=== PATIENT | male | born 1965 | race African-American/Black ===

== ENCOUNTER 2021-10-31 15:46 | Emergency (ER) | payer OTHER, MEDICAID ==
[~2021-10-31] VITALS: Ht 180.3 cm; Wt 77.0 kg
[2021-10-31 18:00] LABS: CHLORIDE 100 mEq/L (98-107); HEMATOCRIT. 46.4 % (42.0-52.0); HEMOGLOBIN. 14.9 g/dL (14.0-18.0); MEAN CORPUSCULAR HEMOGLOBIN 31.1 pg (28.0-32.0); MEAN CORPUSCULAR VOLUME 96.7 fL (80.0-94.0); MEAN PLATELET VOLUME 8.2 fl (7.4-10.4); PLATELET 245 x1000/uL (130-400)
[2021-10-31 18:03] LABS: ETHANOL BLOOD < 10 mg/dL
[2021-10-31 19:04] LABS: PLATELET ESTIMATE NORMAL
[2021-10-31] MEDS ORDERED: IPRATROPIUM BROMIDE (0.02%) 0.5MG/2.5ML NEB HHN STA (19:32)
[2021-10-31] MEDS ORDERED: ASPIRIN 325MG EC TABLET PO ONE (19:45)
[2021-10-31] MEDS ORDERED: SODIUM CHLORIDE 0.9% 500 ML IV ONE (19:45)
[2021-10-31] MEDS: ALBUTEROL (0.083%) 2.5MG/3ML NEB HHN SCH ×3 (20:20→21:55)
[2021-10-31 20:22] LABS: CLARITY URINE CLEAR (CLEAR); COLOR URINE YELLOW (YELLOW); KETONES URINE NEGATIVE (NEGATIVE); LEUKOCYTE ESTERASE URINE NEGATIVE (NEGATIVE); NITRITE URINE NEGATIVE (NEGATIVE); OCCULT BLOOD URINE NEGATIVE (NEGATIVE); PH URINE 5.5 (4.5-8.0); PROTEIN URINE 2+ (NEGATIVE); SPECIFIC GRAVITY URINE 1.021 (1.005-1.030); UROBILINOGEN URINE 0.2 E.U./dL (0.2-1.0)
[2021-10-31 20:35] LABS: *AMPHETAMINES SCREEN URINE PRESUMTIVE POSITIVE (NEGATIVE); *BARBITURATES SCREEN URINE NEGATIVE (NEGATIVE); *BENZODIAZEPINES SCREEN URINE NEGATIVE (NEGATIVE); *COCAINE SCREEN URINE NEGATIVE (NEGATIVE); METHADONE URINE SCREEN NEGATIVE (NEGATIVE); OPIATES URINE SCREEN PRESUMTIVE POSITIVE (NEGATIVE)
[2021-10-31 20:38] LABS: CANNABINOID URINE SCREEN PRESUMTIVE POSITIVE (NEGATIVE); PHENCYCLIDINE URINE SCREEN NEGATIVE (NEGATIVE)
[2021-10-31] MEDS ORDERED: ASPIRIN 325MG EC TABLET PO NR (21:00)
[2021-10-31] MEDS ORDERED: IPRATROPIUM BROMIDE (0.02%) 0.5MG/2.5ML NEB HHN NR (21:00)
[2021-10-31 23:00] VITALS: BP 125/95
== END 2021-10-31 23:28 | disposition short-term general hospital (02) ==
LOC: ER 15:46
DX: I21.4 Non-ST elevation (NSTEMI) myocardial infarction (principal); E86.0 Dehydration; I11.0 Hypertensive heart disease with heart failure; I50.9 Heart failure, unspecified; J44.9 Chronic obstructive pulmonary disease, unspecified; F31.9 Bipolar disorder, unspecified; E11.9 Type 2 diabetes mellitus without complications; I25.2 Old myocardial infarction; F17.210 Nicotine dependence, cigarettes, uncomplicated; Z95.0 Presence of cardiac pacemaker; Z20.822 Contact with and (suspected) exposure to COVID-19; Z88.8 Allergy status to other drugs, medicaments and biological substances
CPT/HCPCS: 36415; 71045; 80053; 80305; 80320; 81003; 83690; 83880; 84484; 85025; 87426; 93005; 94640; 96360; 99285; J7040; G0480

== ENCOUNTER 2021-11-06 13:49 | Emergency (ER) | payer OTHER, MEDICAID ==
[~2021-11-06] VITALS: Ht 177.8 cm; Wt 80.0 kg
[2021-11-06 17:00] LABS: BASOPHILS % 0.5 % (0.0-2.0); HEMATOCRIT. 46.3 % (42.0-52.0); HEMOGLOBIN. 15.1 g/dL (14.0-18.0); LYMPHOCYTES % 11.9 % (20.0-50.0); MEAN CORPUSCULAR HEMOGLOBIN 32.2 pg (28.0-32.0); MEAN CORPUSCULAR VOLUME 98.6 fL (80.0-94.0); MEAN PLATELET VOLUME 7.9 fl (7.4-10.4); MONOCYTES % 8.4 % (2.0-8.0); NEUTROPHILS % 78.2 % (40.0-76.0); PLATELET 237 x1000/uL (130-400); RED CELL DISTRIBUTION WIDTH 16.6 % (11.6-14.6)
[2021-11-06 17:11] LABS: CHLORIDE 114 mEq/L (98-107)
[2021-11-06] MEDS ORDERED: FUROSEMIDE 40MG/4ML VIAL IVP ONE (17:30)
[2021-11-06 19:00] LABS: *AMPHETAMINES SCREEN URINE PRESUMTIVE POSITIVE (NEGATIVE); *BARBITURATES SCREEN URINE NEGATIVE (NEGATIVE); *BENZODIAZEPINES SCREEN URINE NEGATIVE (NEGATIVE); *COCAINE SCREEN URINE NEGATIVE (NEGATIVE); CANNABINOID URINE SCREEN PRESUMTIVE POSITIVE (NEGATIVE); METHADONE URINE SCREEN NEGATIVE (NEGATIVE); OPIATES URINE SCREEN NEGATIVE (NEGATIVE); PHENCYCLIDINE URINE SCREEN NEGATIVE (NEGATIVE)
[2021-11-06] MEDS ORDERED: ALBUTEROL (0.083%) 2.5MG/3ML NEB HHN STA (19:30)
[2021-11-06] MEDS ORDERED: IPRATROPIUM BROMIDE (0.02%) 0.5MG/2.5ML NEB HHN STA (19:30)
[2021-11-06] MEDS ORDERED: LORAZEPAM 2MG/ML CPJ IV ONE (20:00)
[2021-11-06] MEDS ORDERED: LORAZEPAM 2MG/ML CPJ IV NR (21:10)
[2021-11-07 01:46] VITALS: BP 128/98
== END 2021-11-07 02:13 | disposition short-term general hospital (02) ==
LOC: ER 13:49
DX: I11.0 Hypertensive heart disease with heart failure (principal); I50.43 Acute on chronic combined systolic (congestive) and diastolic (congestive) heart failure; F15.129 Other stimulant abuse with intoxication, unspecified; F31.9 Bipolar disorder, unspecified; E11.9 Type 2 diabetes mellitus without complications; J44.9 Chronic obstructive pulmonary disease, unspecified; I25.2 Old myocardial infarction; Z20.822 Contact with and (suspected) exposure to COVID-19; Z95.0 Presence of cardiac pacemaker; Z86.73 Personal history of transient ischemic attack (TIA), and cerebral infarction without residual deficits; Z88.8 Allergy status to other drugs, medicaments and biological substances
CPT/HCPCS: 36415; 71045; 80053; 80305; 80320; 83880; 84484; 85025; 87426; 93005; 94640; 96374; 96375; 99285; J1940; J2060; G0480

== ENCOUNTER 2023-04-25 13:49 | Emergency (ER) | payer OTHER, MEDICAID ==
[~2023-04-25] VITALS: Ht 167.6 cm; Wt 68.0 kg
[~2023-04-25 13:49] MED LIST: ALBU18HF2 IH; CARV12.545 MT; FLUT1DIS3 INH; FURO-151 MT; LOSA50TA41 MT; POTA-205 MT
[2023-04-25 13:56] VITALS: O2SAT 100
[2023-04-25 14:23] LABS: BASOPHILS % 0.8 % (0.0-2.0); EOSINOPHILS % 4.4 % (0.0-5.0); HEMATOCRIT. 40.4 % (42.0-52.0); HEMOGLOBIN. 13.2 g/dL (14.0-18.0); MEAN CORPUSCULAR HEMOGLOBIN 28.2 pg (28.0-32.0); MEAN CORPUSCULAR HGB CONC 32.7 g/dL (31.0-37.0); MEAN CORPUSCULAR VOLUME 86.4 fL (80.0-94.0); MEAN PLATELET VOLUME 7.8 fl (7.4-10.4); MONOCYTES % 9.1 % (2.0-8.0); NEUTROPHILS % 66.7 % (40.0-76.0); PLATELET 317 x1000/uL (130-400); RED BLOOD CELL COUNT 4.68 mill/uL (4.7-6.1); RED CELL DISTRIBUTION WIDTH 20.1 % (11.6-14.6); WHITE BLOOD COUNT 9.3 x1000/uL (4.5-11.0)
[2023-04-25 14:28] LABS: CHLORIDE 103 mEq/L (98-107); INDEX HEMOLYSI 1 (1-3); INDEX ICTERIC 1 (1-4); INDEX LIPEMIC 2 (1-3); POTASSIUM 4.4 mEq/L (3.5-5.1); SODIUM 135 mEq/L (136-145)
[2023-04-25 14:34] LABS: INR 1.7; PARTIAL THROMBOPLASTIN TIME 43.9 sec (23.4-31.0); PROTHROMBIN TIME 17.5 sec (9.6-11.0)
[2023-04-25 14:39] LABS: ALANINE AMINOTRANSFERASE 262 IU/L (13-61); ALBUMIN 2.9 g/dL (3.4-5.0); ASPARTATE AMINOTRANSFERASE 45 IU/L (15-37); BILIRUBIN TOTAL 0.8 mg/dL (0.1-1.0); CALCIUM 9.3 mg/dL (8.5-10.1); CARBON DIOXIDE 24 mEq/L (21-32); CREATININE 1.6 mg/dL (0.6-1.3); GLUCOSE 113 mg/dL (70-105); NT PRO B-TYPE NATRIURETIC PEP 3833 pg/mL (5-125); PROTEIN TOTAL 8.3 g/dL (6.0-8.3); TROPONIN I HIGH SENSITIVITY 33 ng/L (<78); UREA NITROGEN BLOOD 22 mg/dL (7-21)
[2023-04-25 21:02] VITALS: BP 103/60; PULSE 88; RESP 21; TEMP 98.4
== END 2023-04-25 21:30 | disposition short-term general hospital (02) ==
LOC: ER 13:49
DX: I50.9 Heart failure, unspecified (principal); R55 Syncope and collapse; F31.9 Bipolar disorder, unspecified; I11.0 Hypertensive heart disease with heart failure; J44.9 Chronic obstructive pulmonary disease, unspecified; I25.2 Old myocardial infarction; Z86.73 Personal history of transient ischemic attack (TIA), and cerebral infarction without residual deficits
CPT/HCPCS: 99285; 70450; 71045; 87426; 80053; 83880; 85025; 85610; 85730; 84484; 36415; C9803

== ENCOUNTER 2023-05-05 13:54 | Inpatient (IN) | payer OTHER, MEDICAID ==
[~2023-05-05] VITALS: Ht 165.1 cm; Wt 79.8 kg
[2023-05-05 16:44] LABS: EOSINOPHILS % 3.4 % (0.0-5.0); HEMATOCRIT. 41.4 % (42.0-52.0); HEMOGLOBIN. 12.9 g/dL (14.0-18.0); LYMPHOCYTES % 24.4 % (20.0-50.0); MEAN CORPUSCULAR HEMOGLOBIN 27.7 pg (28.0-32.0); MEAN CORPUSCULAR HGB CONC 31.2 g/dL (31.0-37.0); MEAN CORPUSCULAR VOLUME 88.8 fL (80.0-94.0); MEAN PLATELET VOLUME 8.1 fl (7.4-10.4); MONOCYTES % 13.8 % (2.0-8.0); NEUTROPHILS % 57.4 % (40.0-76.0); PLATELET 312 x1000/uL (130-400); RED BLOOD CELL COUNT 4.66 mill/uL (4.7-6.1); RED CELL DISTRIBUTION WIDTH 20.7 % (11.6-14.6); WHITE BLOOD COUNT 7.6 x1000/uL (4.5-11.0)
[2023-05-05 16:59] LABS: INDEX HEMOLYSI 1 (1-3); INDEX ICTERIC 1 (1-4); INDEX LIPEMIC 1 (1-3)
[2023-05-05 17:01] LABS: CALCIUM 9.3 mg/dL (8.5-10.1)
[2023-05-05 17:04] LABS: ALBUMIN 2.9 g/dL (3.4-5.0); CARBON DIOXIDE 23 mEq/L (21-32); CHLORIDE 105 mEq/L (98-107); GLUCOSE 66 mg/dL (70-105); SODIUM 140 mEq/L (136-145); UREA NITROGEN BLOOD 28 mg/dL (7-21)
[2023-05-05 17:10] LABS: ALANINE AMINOTRANSFERASE 43 IU/L (13-61); ASPARTATE AMINOTRANSFERASE 26 IU/L (15-37); BILIRUBIN TOTAL 0.7 mg/dL (0.1-1.0); CREATININE 1.4 mg/dL (0.6-1.3); NT PRO B-TYPE NATRIURETIC PEP 3443 pg/mL (5-125); PROTEIN TOTAL 7.6 g/dL (6.0-8.3)
[2023-05-06] MEDS ORDERED: ACETAMINOPHEN 325MG TABLET PO PRN ×2 (00:30→22:45)
[2023-05-06] MEDS ORDERED: ONDANSETRON HCL 4MG/2ML INJ IV PRN ×2 (00:30→22:45)
[2023-05-06 05:00] VITALS: BP 109/70; PULSE 86; RESP 18; TEMP 97.5
[2023-05-06 05:55] VITALS: BP 109/7; PULSE 86; RESP 18; TEMP 97.5
[2023-05-06 08:00] VITALS: BP 111/73; PULSE 85; RESP 17; TEMP 96.9
[2023-05-06] MEDS: ENOXAPARIN 40MG/0.4ML SYR SUBCUT SCH (09:08)
[2023-05-06 12:00] VITALS: BP 115/70; PULSE 87; RESP 17; TEMP 97.1
[2023-05-06 13:21] LABS: INDEX HEMOLYSI 1 (1-3)
[2023-05-06 13:30] LABS: CREATINE KINASE 50 IU/L (39-308); CREATINE KINASE MB FRACTION 2.5 ng/mL (0.5-3.6); TROPONIN I HIGH SENSITIVITY 32 ng/L (<78)
[2023-05-06] MEDS: HYDROCODONE/ACETAMINOPHEN 5/325MG TABLET PO PRN ×2 (13:44→20:50)
[2023-05-06] MEDS ORDERED: NALOXONE HCL 0.4MG/ML VIAL IV PRN (13:45)
[2023-05-06 15:57] LABS: CREATINE KINASE MB FRACTION 2.7 ng/mL (0.5-3.6)
[2023-05-06 16:00] VITALS: BP 103/81; PULSE 87; RESP 17; TEMP 98
[2023-05-06] MEDS ORDERED: DEXTROSE 50% WATER 50ML SYRINGE IV PRN (19:15)
[2023-05-06 19:56] VITALS: BP 110/79; PULSE 94; RESP 17; TEMP 98.1
[2023-05-06] MEDS: CARVEDILOL 12.5MG TABLET PO SCH (20:20)
[2023-05-06] MEDS: BLOOD SUGAR DIAGNOSTIC STRIP TEST SCH (20:42)
[2023-05-06] MEDS ORDERED: IPRATROPIUM/ALBUTEROL 0.5-3(2.5)MG/3ML NEB HHN PRN (22:45)
[2023-05-07 00:38] VITALS: BP 128/80; PULSE 110; RESP 18; TEMP 97.8
[2023-05-07] MEDS: BLOOD SUGAR DIAGNOSTIC STRIP TEST SCH ×4 (06:22→21:00)
[2023-05-07 08:00] VITALS: BP 118/78; PULSE 90; RESP 18; TEMP 97.3
[2023-05-07] MEDS: ENOXAPARIN 40MG/0.4ML SYR SUBCUT SCH (08:16)
[2023-05-07] MEDS: CARVEDILOL 12.5MG TABLET PO SCH ×2 (08:28→20:20)
[2023-05-07] MEDS: LOSARTAN 25 MG TABLET PO SCH (08:30)
[2023-05-07] MEDS: HYDROCODONE/ACETAMINOPHEN 5/325MG TABLET PO PRN ×2 (08:30→16:55)
[2023-05-07 09:08] LABS: CHLORIDE 105 mEq/L (98-107); INDEX HEMOLYSI 2 (1-3); INDEX ICTERIC 1 (1-4); INDEX LIPEMIC 1 (1-3); POTASSIUM 4.3 mEq/L (3.5-5.1); SODIUM 135 mEq/L (136-145)
[2023-05-07 09:19] LABS: CALCIUM 9.1 mg/dL (8.5-10.1); CARBON DIOXIDE 21 mEq/L (21-32); CREATINE KINASE 60 IU/L (39-308); CREATINE KINASE MB FRACTION 2.6 ng/mL (0.5-3.6); CREATININE 1.1 mg/dL (0.6-1.3); GLUCOSE 137 mg/dL (70-105); TROPONIN I HIGH SENSITIVITY 36 ng/L (<78); UREA NITROGEN BLOOD 24 mg/dL (7-21)
[2023-05-07] MEDS ORDERED: METOPROLOL TARTRATE 50MG TABLET PO NR (09:30)
[2023-05-07 12:00] VITALS: BP 89/61; PULSE 85; RESP 20; TEMP 97.1
[2023-05-07 16:00] VITALS: BP 89/61; PULSE 68; RESP 18; TEMP 97
[2023-05-07 16:15] LABS: CREATINE KINASE MB FRACTION 2.9 ng/mL (0.5-3.6)
[2023-05-07 20:00] VITALS: BP 108/65; PULSE 75; RESP 20; TEMP 97.6
[2023-05-07] MEDS ORDERED: LORAZEPAM 2MG/ML CPJ IV PRN (20:00)
[2023-05-07] MEDS: QUETIAPINE FUMARATE 25MG TABLET PO SCH (20:20)
[2023-05-07 21:08] LABS: *AMPHETAMINES SCREEN URINE PRESUMTIVE POSITIVE (NEGATIVE); *BARBITURATES SCREEN URINE NEGATIVE (NEGATIVE); *BENZODIAZEPINES SCREEN URINE NEGATIVE (NEGATIVE); *COCAINE SCREEN URINE NEGATIVE (NEGATIVE); CANNABINOID URINE SCREEN NEGATIVE (NEGATIVE); ECSTASY MDMA SCREEN URINE NEGATIVE (NEGATIVE); OPIATES URINE SCREEN PRESUMTIVE POSITIVE (NEGATIVE); PHENCYCLIDINE URINE SCREEN NEGATIVE (NEGATIVE)
[2023-05-07 21:26] LABS: METHADONE URINE SCREEN INVALID (NEGATIVE)
[2023-05-08] VITALS (7 sets, daily range): BP systolic 90–104; BP diastolic 55–73; PULSE 70–86; RESP 18–22; TEMP 97–98.7; O2SAT 100
[2023-05-08] MEDS: BLOOD SUGAR DIAGNOSTIC STRIP TEST SCH ×4 (06:19→20:14)
[2023-05-08] MEDS: QUETIAPINE FUMARATE 25MG TABLET PO SCH ×2 (09:44→21:29)
[2023-05-08] MEDS: CARVEDILOL 12.5MG TABLET PO SCH ×2 (09:44→20:13)
[2023-05-08] MEDS: ENOXAPARIN 40MG/0.4ML SYR SUBCUT SCH (09:44)
[2023-05-08] MEDS: LOSARTAN 25 MG TABLET PO SCH (09:44)
[2023-05-08] MEDS: HYDROCODONE/ACETAMINOPHEN 5/325MG TABLET PO PRN (16:07)
[2023-05-09] VITALS: BP 102/71; PULSE 94; RESP 18; TEMP 97.4
== END 2023-05-09 02:15 | disposition short-term general hospital (02) | DRG 312 ==
LOC: ER 13:54 → EDBEDREQSVC 19:19 → EDBEDREQ 19:19 → MICUSO 05-06 00:12 → 5WST 05-06 07:48
PROVIDERS: ADMIT Internal Medicine; ATTEND Internal Medicine
DX: I95.1 Orthostatic hypotension (principal); G93.41 Metabolic encephalopathy; I50.23 Acute on chronic systolic (congestive) heart failure; N17.9 Acute kidney failure, unspecified; I11.0 Hypertensive heart disease with heart failure; D64.9 Anemia, unspecified; E11.51 Type 2 diabetes mellitus with diabetic peripheral angiopathy without gangrene; G62.9 Polyneuropathy, unspecified; G83.9 Paralytic syndrome, unspecified; J44.9 Chronic obstructive pulmonary disease, unspecified; F15.90 Other stimulant use, unspecified, uncomplicated; F17.210 Nicotine dependence, cigarettes, uncomplicated; Z96.652 Presence of left artificial knee joint; Z79.899 Other long term (current) drug therapy; Z95.810 Presence of automatic (implantable) cardiac defibrillator
CPT/HCPCS: 36415; 71045; 73030; 80048; 80053; 80305; 82550; 82553; 82962; 83036; 83880; 84484; 85025; 93005; 93880; 97167; 99285; C1893; J1650; J2060

== ENCOUNTER 2023-06-08 00:17 | Emergency (ER) | payer OTHER, MEDICAID ==
[~2023-06-08] VITALS: Ht 170.2 cm; Wt 65.0 kg
[2023-06-08 01:40] VITALS: RESP 22
[2023-06-08 03:14] LABS: HEMATOCRIT. 37.2 % (42.0-52.0); HEMOGLOBIN. 11.5 g/dL (14.0-18.0); MEAN CORPUSCULAR HEMOGLOBIN 27.5 pg (28.0-32.0); MEAN CORPUSCULAR VOLUME 88.8 fL (80.0-94.0); MEAN PLATELET VOLUME 8.4 fl (7.4-10.4); PLATELET 243 x1000/uL (130-400); RED BLOOD CELL COUNT 4.19 mill/uL (4.7-6.1); RED CELL DISTRIBUTION WIDTH 20.8 % (11.6-14.6)
[2023-06-08 03:28] LABS: DIFFERENTIAL COMMENT 1
[2023-06-08 03:59] LABS: LACTIC ACID 3.9 mmol/L (0.4-2.0)
[2023-06-08] MEDS ORDERED: METHYLPREDNISOLONE SOD SUCC 125MG/2ML (ACT-O-VIAL) IV NR (04:10)
[2023-06-08] MEDS ORDERED: ALBUTEROL (0.083%) 2.5MG/3ML NEB HHN NR (04:10)
[2023-06-08] MEDS ORDERED: IPRATROPIUM BROMIDE (0.02%) 0.5MG/2.5ML NEB HHN NR (04:10)
[2023-06-08 04:34] VITALS: PULSE 96; RESP 30; O2SAT 100
[2023-06-08 05:32] LABS: CHLORIDE 102 mEq/L (98-107); POTASSIUM 4.6 mEq/L (3.5-5.1); SODIUM 137 mEq/L (136-145)
[2023-06-08 05:33] LABS: CALCIUM 9.1 mg/dL (8.7-10.4); CARBON DIOXIDE 27 mEq/L (21-32); CREATININE 1.1 mg/dL (0.6-1.3); GLUCOSE 78 mg/dL (70-105); PROTEIN TOTAL 6.4 g/dL (6.0-8.3)
[2023-06-08 05:34] LABS: ALANINE AMINOTRANSFERASE 657 IU/L (10-49); ALBUMIN 3.7 g/dL (3.2-4.8); ASPARTATE AMINOTRANSFERASE 401 IU/L (<34); BILIRUBIN TOTAL 1.2 mg/dL (0.1-1.0)
[2023-06-08 05:38] LABS: ETHANOL BLOOD < 10 mg/dL (<10)
[2023-06-08 05:40] LABS: UREA NITROGEN BLOOD 22 mg/dL (9-23)
[2023-06-08 05:45] LABS: TROPONIN I HIGH SENSITIVITY 68 ng/L (3.0-53)
[2023-06-08] MEDS ORDERED: ASPIRIN 325MG EC TABLET PO NR (06:00)
[2023-06-08 08:08] VITALS: BP 131/92; PULSE 86; RESP 16
[2023-06-08 08:27] LABS: PLATELET ESTIMATE NORMAL
== END 2023-06-08 08:53 | disposition left against medical advice (07) ==
LOC: ER 00:29 → CANBEDREQ 14:16
DX: J44.1 Chronic obstructive pulmonary disease with (acute) exacerbation (principal); R79.89 Other specified abnormal findings of blood chemistry; D64.9 Anemia, unspecified; R94.5 Abnormal results of liver function studies; F15.10 Other stimulant abuse, uncomplicated; E11.9 Type 2 diabetes mellitus without complications; I11.0 Hypertensive heart disease with heart failure; I50.9 Heart failure, unspecified; Z88.8 Allergy status to other drugs, medicaments and biological substances; Z86.73 Personal history of transient ischemic attack (TIA), and cerebral infarction without residual deficits
CPT/HCPCS: 80053; 80320; 82962; 83880; 83605; 85025; 84484; 36415; 71045; 94640; 93005; 96374; 99285; J2930; 94660; 94664; G0480